=== PATIENT | male | born 1955 ===

== ENCOUNTER → 2018-10-09 | Outpatient (CLI) | payer OTHER ==
[~2018-10-09] MED LIST: ACET325 PO; ARIP10; ASPI325 PO; ASPI325B; ASPI325B PO; ATOR40TA PO; BETA.05TC TP; CARV3.125 PO; CEPH500 PO; CLOP75 PO; DOC250 PO; DOCU100; ESCI20; FAMO20 PO; FLUO20; FLUO20 PO; HYDCOR1TO TOP; LACT10SY PO; LISI5 PO; LORA2 PO; MAGCIT300 PO; META800 PO; MULVITA PO; MYRBETRIQ50 MG PO; NAPR220 PO; OXYACE5T PO; PROM25 PO; RANI150 PO; RISP2; RISP2 PO; RXLORA1 PO; RXMETA800 PO; TOLT2 PO; TRAZ50; VESICARE PO; [UNRECOGNIZED DRUG - OTHER] PO
[2018-10-11 13:34] LABS: Stool Occult Bld Immuno 1 Negative (NEGATIVE)
== END ==
LOC: LAB 14:43 → LAB SHORT 14:43 → LAB FUT 10-09 16:55
PROVIDERS: Family Medicine
DX: Z12.11 Encounter for screening for malignant neoplasm of colon (principal)
CPT/HCPCS: G0328